=== PATIENT | female | born 1940 | race Caucasian/White ===

== ENCOUNTER 2022-10-08 09:42 | Inpatient (IN) | payer OTHER ==
[~2022-10-08 09:42] MED LIST: ASPI81CH PO; MECL25 PO
[2022-10-08 10:21] LABS: Source, Urine Straight Cath
[2022-10-08 10:25] LABS: BASOPHILS ABSOLUTE AUTO 0.04 K/mm3 (0.00-0.23); BASOPHILS PERCENT AUTO 0 % (0-2); EOSINOPHILS PERCENT AUTO 0 % (0-6); Hemoglobin 13.6 g/dL (11.5-16.0); IMMATURE GRAN ABSOLUTE AUTO 0.07 K/mm3 (0.00-0.10); IMMATURE GRAN PERCENT AUTO 1 % (0-1); LYMPHOCYTES ABSOLUTE AUTO 0.45 K/mm3 (0.84-5.20); LYMPHOCYTES PERCENT AUTO 4 % (21-46); MONOCYTES ABSOLUTE AUTO 0.78 K/mm3 (0.16-1.47); MONOCYTES PERCENT AUTO 7 % (4-13); Mean Corpuscular HGB 31.2 pg (26.0-34.0); Mean Corpuscular Volume 92 fL (80-100); Mean Platelet Volume 8.6 fL (9.1-12.4); NEUTROPHILS PERCENT AUTO 89 % (41-73); Platelet Count 252 K/mm3 (150-400); RDW Coefficient Variation 11.9 % (11.7-14.2); RDW Standard Deviation 40.7 fL (35.1-46.3); Red Blood Cell Count 4.36 M/mm3 (3.80-5.20); White Blood Cell Count 11.84 K/mm3 (4.00-11.30)
[2022-10-08 10:25] LABS: Appearance, Urine Cloudy (Clear); Bilirubin, Urine Neg (Neg); Blood, Urine 4+ (Neg); Color, Urine Yellow (P-Yellow); Glucose Qualitative, Urine Neg (Neg); Ketones, Urine 1+ (Neg); Leukocyte Esterase, Urine 3+ (Neg); Nitrite, Urine Pos (Neg); Protein, Urine 3+ (Neg); Urobilinogen, Urine NORM (Normal)
[2022-10-08 10:43] LABS: Bacteria Mod /hpf; Squamous Epithelial Cells Not Seen /hpf (Few); White Blood Cells, Urine 25-50 /hpf (0-5)
[2022-10-08 10:50] LABS: Albumin, Blood 3.4 g/dL (3.4-5.0); Albumin/Globulin Ratio 0.8 (0.8-1.8); Bilirubin, Total 1.4 mg/dL (0.1-1.0); Bun/Creatinine Ratio 23.8 (12.0-20.0); Calcium, Blood 8.6 mg/dL (8.5-10.1); Creatinine, Blood 0.63 mg/dL (0.40-1.00); Potassium, Blood 3.9 mmol/L (3.5-5.5); Total Protein, Blood 7.4 g/dL (6.4-8.2)
[2022-10-08] MEDS ORDERED: CLOTRIMAZOLE 321 GM (15:36)
[2022-10-08] MEDS ORDERED: NYSTRIT TOP (19:30)
[2022-10-08] MEDS ORDERED: ALEVAZOL56.7 G1 TOP (19:35)
--- NOTE | 2022-10-08 20:15 | NUR ---
SHIFT SUMMARY 1505 RECEIVED PT TO RM 310 VIA GURNEY FROM ER. PT ADMITTED FOR PYELONEPHRITIS. PT TO ER WITH SUDDEN ONSET OF R FLANK PAIN AND FEVER. IVF'S AND ROCEPHIN GIVEN IN ER. PT TO RM WITH IVF'S INFUSING PER EMAR. PT'S DAUGHTER AT BS TO ASSIST WITH ADMISSION. PT IS A&O, PLEASANT AND CO-OP. SOME FORGETFULNESS. BED ALARM ON FOR SAFETY. PT ABLE TO TX SELF TO BED UPON ARRIVAL AND AMBULATE TO BTHRM USING FWW AND 1P ASSIST WITH IV PUMP. PT IS CONTINENT. HX OF KEISHA; RT IN TO DISCUSS CPAP WITH PT. PT'S TEMP WNL'S UPON ADMISSION; SEE CHART. THIS EVENING AFTER DINNER PT BECAME CHILLED AND STARTED SHAKING. TEMP CK'D SHOWING INCREASE TO 102.0. HEAT DECREASED IN RM, BLANKETS REMOVED, AND TYLENOL GIVEN PER EMAR. PT NO LONGER SHAKING WITH CHILLS AT THIS TIME, REPORTING FEELING BETTER. ONCOMING FRUIT PACKER FACE AND FILL TO BLAZE VS. REPORT GIVEN TO ONCOMING RN. BED ALARM ON FOR SAFETY, CALL LT IN REACH.
--- NOTE | 2022-10-08 20:25 | NUR ---
PT REPORTING RECENT YEAST INFECTION TO LOW ABD AND DANNY AREA. SKIN IS DARK RED, BUT DRY AND IN HEALING STAGE. DR ARCHIBALD NOTIFIED FOR HOME MEDICATIONS; NEW ORDERS PLACED, SEE EMAR. REPORT GIVEN TO ONCOMING RN.
[2022-10-09 05:03] LABS: Hematocrit 37.4 % (33.0-51.0); Hemoglobin 12.7 g/dL (11.5-16.0); Mean Corpuscular HGB 31.4 pg (26.0-34.0); Mean Corpuscular Volume 92 fL (80-100); Platelet Count 215 K/mm3 (150-400); RDW Coefficient Variation 11.9 % (11.7-14.2); RDW Standard Deviation 40.7 fL (35.1-46.3); Red Blood Cell Count 4.05 M/mm3 (3.80-5.20); White Blood Cell Count 7.58 K/mm3 (4.00-11.30)
[2022-10-09 05:43] LABS: Bun/Creatinine Ratio 17.3 (12.0-20.0); Calcium, Blood 8.2 mg/dL (8.5-10.1); Creatinine, Blood 0.99 mg/dL (0.40-1.00); Potassium, Blood 3.7 mmol/L (3.5-5.5)
[2022-10-09] MEDS ORDERED: NYAMYC15 G1 TOP (15:36)
--- NOTE | 2022-10-09 17:35 | NUR ---
SHIFT SUMMARY PATIENT DENIES PAIN, NAUSEA, AND SHORTNESS OF BREATH. PATIENT IS A SBA WITH A FWW. PATIENT HAS NS AT 1OOMLS/HR. AT 0800, IV FOUND INFILTRATED, NEW IV PLACED IN RIGHT WRIST. PATIENT HAD LOW GRADE FEVER 100.4, MEDICATED WITH TYLENOL. PATIENT REMAINED AT 98.7 OR LESS FOR THE REST OF SHIFT. PATIENT HAD MANY VISITORS TODAY. PATIENT IS EATING AND DRINKING WELL. PATIENT UP TO CHAIR FOR MEALS. PATIENT IS PLEASANT AND COOPERATIVE WITH CARE.
[2022-10-10 05:22] LABS: BASOPHILS ABSOLUTE AUTO 0.03 K/mm3 (0.00-0.23); BASOPHILS PERCENT AUTO 1 % (0-2); EOSINOPHILS ABSOLUTE AUTO 0.04 K/mm3 (0.00-0.68); EOSINOPHILS PERCENT AUTO 1 % (0-6); Hematocrit 36.2 % (33.0-51.0); Hemoglobin 12.6 g/dL (11.5-16.0); IMMATURE GRAN ABSOLUTE AUTO 0.03 K/mm3 (0.00-0.10); IMMATURE GRAN PERCENT AUTO 1 % (0-1); LYMPHOCYTES ABSOLUTE AUTO 0.54 K/mm3 (0.84-5.20); LYMPHOCYTES PERCENT AUTO 8 % (21-46); MONOCYTES ABSOLUTE AUTO 0.55 K/mm3 (0.16-1.47); MONOCYTES PERCENT AUTO 9 % (4-13); Mean Corpuscular HGB 31.3 pg (26.0-34.0); Mean Corpuscular HGB Conc 34.8 g/dL (31.5-36.5); Mean Corpuscular Volume 90 fL (80-100); Mean Platelet Volume 8.8 fL (9.1-12.4); NEUTROPHILS ABSOLUTE AUTO 5.27 K/mm3 (1.96-9.15); NEUTROPHILS PERCENT AUTO 82 % (41-73); Platelet Count 209 K/mm3 (150-400); RDW Coefficient Variation 11.8 % (11.7-14.2); RDW Standard Deviation 38.9 fL (35.1-46.3); Red Blood Cell Count 4.02 M/mm3 (3.80-5.20); White Blood Cell Count 6.46 K/mm3 (4.00-11.30)
--- NOTE | 2022-10-10 05:53 | NUR ---
SHIFT SUMMARY NOC PT A/OX4. PT STILL ON 4L/NC SPO2 >94%. PT HAS NS INFUSING @ 100MLS. PT HAS NAUSEA AT BEGINNING OF SHIFT AND MEDICATED WITH ZOFRAN WHICH RELIEVED IT. PT WAS CONT OF URINE/BOWELS WITH SBA WITH FWW. PT CALLS APPROPRIATELY WHEN FEELING ELIMINATION URGES. PT WAS PLEASANT AND COOPERATIVE TO CARE. PT IS CURRENTLY IN BED WATCHING TV WITH BED RAILS UP, BED IN LOWEST POSITION, AND CALL LIGHT WITHIN REACH.
[2022-10-10 05:58] LABS: Bun/Creatinine Ratio 12.6 (12.0-20.0); Calcium, Blood 8.2 mg/dL (8.5-10.1); Creatinine, Blood 0.87 mg/dL (0.40-1.00); Potassium, Blood 3.8 mmol/L (3.5-5.5)
[2022-10-10] MEDS ORDERED: Acetaminophen325 M1 PO (11:28)
[2022-10-10] MEDS ORDERED: VISBIOME 112.51 EACH PO (11:29)
[2022-10-10] MEDS ORDERED: CEFD300 PO (11:33)
[2022-10-10] MEDS ORDERED: ONDA4ODT MM (11:34)
== END 2022-10-10 13:13 | disposition home or self-care (01) | DRG 690 ==
LOC: ER 09:42 → ERHOLD 09:43 → MEDS 09:43 → ERHOLD 09:43 → MEDS 14:47
PROVIDERS: Emergency Medicine; Family Medicine; Nurse Practitioner Acute Care; ADMIT Internal Medicine
DX: N10 Acute pyelonephritis (principal); R78.81 Bacteremia; G47.33 Obstructive sleep apnea (adult) (pediatric); R91.1 Solitary pulmonary nodule; B96.20 Unspecified Escherichia coli [E. coli] as the cause of diseases classified elsewhere; Z28.21 Immunization not carried out because of patient refusal
CPT/HCPCS: 36415; 51701; 71045; 74177; 76770; 80048; 80053; 81001; 83605; 85025; 85027; 87040; 87077; 87086; 87186; 93005; 93010; 94760; 94762; 96361; 96365-59; 96372; 96376; 99285-25; A9270; G0378; J0696; J1650; J1885; J2405; J7030; Q9967

== ENCOUNTER → 2023-01-31 | Outpatient (CLI) | payer OTHER ==
[~2023-01-31] MED LIST changes: +ALEVAZOL56.7 G1 TOP; +Acetaminophen325 M1 PO; +CEFD300 PO; +CLOTRIMAZOLE 321 GM; +NYAMYC15 G1 TOP; +NYSTRIT TOP; +ONDA4ODT MM; +VISBIOME 112.51 EACH PO
[2023-01-31 14:08] LABS: Source, Urine Clean Catch
[2023-01-31 14:34] LABS: Appearance, Urine Clear (Clear); Bilirubin, Urine Neg (Neg); Blood, Urine Neg (Neg); Color, Urine Yellow (P-Yellow); Glucose Qualitative, Urine Neg (Neg); Ketones, Urine Neg (Neg); Leukocyte Esterase, Urine 1+ (Neg); Nitrite, Urine Pos (Neg); Protein, Urine Neg (Neg); Urobilinogen, Urine NORM (Normal)
[2023-01-31 14:41] LABS: Bacteria Many /hpf; Squamous Epithelial Cells Few /hpf (Few)
== END | disposition home or self-care (01) ==
LOC: LAB SHORT 14:05 → LAB 14:05
PROVIDERS: Physician Assistant
DX: R35.0 Frequency of micturition (principal)
CPT/HCPCS: 81001; 87077; 87086; 87186

== ENCOUNTER 2023-03-25 11:56 | Emergency (ER) | payer OTHER ==
[~2023-03-25] VITALS: Ht 162.6 cm; Wt 74.8 kg
[2023-03-25 12:00] VITALS: BP 159/72
[2023-03-25 13:19] LABS: BASOPHILS ABSOLUTE AUTO 0.04 K/mm3 (0.00-0.23); BASOPHILS PERCENT AUTO 1 % (0-2); EOSINOPHILS ABSOLUTE AUTO 0.03 K/mm3 (0.00-0.68); EOSINOPHILS PERCENT AUTO 1 % (0-6); Hematocrit 38.5 % (33.0-51.0); Hemoglobin 13.5 g/dL (11.5-16.0); IMMATURE GRAN ABSOLUTE AUTO 0.01 K/mm3 (0.00-0.10); IMMATURE GRAN PERCENT AUTO 0 % (0-1); LYMPHOCYTES ABSOLUTE AUTO 1.15 K/mm3 (0.84-5.20); LYMPHOCYTES PERCENT AUTO 18 % (21-46); MONOCYTES ABSOLUTE AUTO 0.32 K/mm3 (0.16-1.47); MONOCYTES PERCENT AUTO 5 % (4-13); Mean Corpuscular HGB 30.8 pg (26.0-34.0); Mean Corpuscular HGB Conc 35.1 g/dL (31.5-36.5); Mean Corpuscular Volume 88 fL (80-100); Mean Platelet Volume 9.1 fL (9.1-12.4); NEUTROPHILS ABSOLUTE AUTO 4.86 K/mm3 (1.96-9.15); NEUTROPHILS PERCENT AUTO 76 % (41-73); Platelet Count 337 K/mm3 (150-400); RDW Coefficient Variation 11.9 % (11.7-14.2); RDW Standard Deviation 38.5 fL (35.1-46.3); Red Blood Cell Count 4.39 M/mm3 (3.80-5.20); White Blood Cell Count 6.41 K/mm3 (4.00-11.30)
[2023-03-25 13:26] LABS: Albumin, Blood 3.7 g/dL (3.4-5.0); Albumin/Globulin Ratio 1.2 (0.8-1.8); Bilirubin, Total 0.7 mg/dL (0.1-1.0); Bun/Creatinine Ratio 26.3 (12.0-20.0); Calcium, Blood 8.5 mg/dL (8.5-10.1); Creatinine, Blood 0.84 mg/dL (0.40-1.00); Globulin, Blood 3.2 g/dL (2.2-4.0); Potassium, Blood 3.5 mmol/L (3.5-5.5); Total Protein, Blood 6.9 g/dL (6.4-8.2)
[2023-03-25] MEDS ORDERED: METO10 PO (15:08)
[2023-03-25] MEDS ORDERED: ONDA4ODT MM (15:08)
[2023-03-25] MEDS ORDERED: PROM12.5S PR (15:08)
== END 2023-03-25 15:30 | disposition home or self-care (01) ==
LOC: ER 11:56
PROVIDERS: Student in an Organized Health Care Education/Training Program
DX: K52.9 Noninfective gastroenteritis and colitis, unspecified (principal); E86.0 Dehydration; Z79.899 Other long term (current) drug therapy
CPT/HCPCS: 71046; 80053; 83735; 83880; 84484; 85025; 96361; 96374; 96375; 99284-25; J2765; J3475; J7030

== ENCOUNTER 2025-01-19 09:54 | Emergency (ER) | payer OTHER ==
[~2025-01-19] VITALS: Ht 162.6 cm; Wt 60.8 kg
[~2025-01-19 09:54] MED LIST changes: +METO10 PO; +PROM12.5S PR
[2025-01-19 11:18] LABS: BASOPHILS ABSOLUTE AUTO 0.06 K/mm3 (0.00-0.23); BASOPHILS PERCENT AUTO 1 % (0-2); EOSINOPHILS ABSOLUTE AUTO 0.06 K/mm3 (0.00-0.68); EOSINOPHILS PERCENT AUTO 1 % (0-6); Hemoglobin 13.6 g/dL (11.5-16.0); IMMATURE GRAN ABSOLUTE AUTO 0.02 K/mm3 (0.00-0.10); IMMATURE GRAN PERCENT AUTO 0 % (0-1); LYMPHOCYTES ABSOLUTE AUTO 1.43 K/mm3 (0.84-5.20); LYMPHOCYTES PERCENT AUTO 30 % (21-46); MONOCYTES ABSOLUTE AUTO 0.27 K/mm3 (0.16-1.47); MONOCYTES PERCENT AUTO 6 % (4-13); Mean Corpuscular Volume 91 fL (80-100); Mean Platelet Volume 8.4 fL (9.1-12.4); NEUTROPHILS PERCENT AUTO 61 % (41-73); Platelet Count 398 K/mm3 (150-400); RDW Standard Deviation 39.8 fL (35.1-46.3); Red Blood Cell Count 4.39 M/mm3 (3.80-5.20); White Blood Cell Count 4.74 K/mm3 (4.00-11.30)
[2025-01-19 11:38] LABS: Albumin, Blood 3.8 g/dL (3.4-5.0); Albumin/Globulin Ratio 1.1 (0.8-1.8); Bilirubin, Total 0.6 mg/dL (0.1-1.0); Bun/Creatinine Ratio 23.4 (12.0-20.0); Calcium, Blood 8.8 mg/dL (8.5-10.1); Creatinine, Blood 0.73 mg/dL (0.40-1.00); Globulin, Blood 3.6 g/dL (2.2-4.0); Total Protein, Blood 7.4 g/dL (6.4-8.2)
[2025-01-19] MEDS ORDERED: Ibuprofen 600 MG Tab PO ONE (12:15)
[2025-01-19] MEDS ORDERED: Acetaminophen 500 MG Tab PO ONE (12:15)
[2025-01-19] MEDS ORDERED: ACET500 PO (14:07)
[2025-01-19 14:19] VITALS: BP 142/86
== END 2025-01-19 14:20 | disposition home or self-care (01) ==
LOC: ER 09:54
PROVIDERS: Physician Assistant
DX: R07.89 Other chest pain (principal); G47.30 Sleep apnea, unspecified; Z79.899 Other long term (current) drug therapy
CPT/HCPCS: 71046; 80053; 83735; 84484; 85025; 93005; 93010; 99285-25

== ENCOUNTER 2025-02-25 11:13 | Inpatient (IN) | payer OTHER ==
[~2025-02-25] VITALS: Ht 157.5 cm; Wt 61.3 kg
[~2025-02-25 11:13] MED LIST changes: +ACET500 PO
[2025-02-25 12:28] LABS: BASOPHILS ABSOLUTE AUTO 0.04 K/mm3 (0.00-0.23); BASOPHILS PERCENT AUTO 0 % (0-2); EOSINOPHILS PERCENT AUTO 0 % (0-6); Hematocrit 38.1 % (33.0-51.0); IMMATURE GRAN ABSOLUTE AUTO 0.04 K/mm3 (0.00-0.10); IMMATURE GRAN PERCENT AUTO 0 % (0-1); LYMPHOCYTES ABSOLUTE AUTO 0.79 K/mm3 (0.84-5.20); LYMPHOCYTES PERCENT AUTO 7 % (21-46); MONOCYTES ABSOLUTE AUTO 0.76 K/mm3 (0.16-1.47); MONOCYTES PERCENT AUTO 6 % (4-13); Mean Corpuscular HGB 31.3 pg (26.0-34.0); Mean Corpuscular HGB Conc 34.1 g/dL (31.5-36.5); Mean Corpuscular Volume 92 fL (80-100); Mean Platelet Volume 8.7 fL (9.1-12.4); NEUTROPHILS ABSOLUTE AUTO 10.18 K/mm3 (1.96-9.15); NEUTROPHILS PERCENT AUTO 86 % (41-73); Platelet Count 216 K/mm3 (150-400); RDW Coefficient Variation 11.9 % (11.7-14.2); RDW Standard Deviation 40.3 fL (35.1-46.3); Red Blood Cell Count 4.16 M/mm3 (3.80-5.20); White Blood Cell Count 11.81 K/mm3 (4.00-11.30)
[2025-02-25] MEDS ORDERED: Ondansetron HCl 2 MG / ML 2ML Vial IV ONE (13:10)
[2025-02-25 13:12] LABS: Albumin, Blood 3.2 g/dL (3.4-5.0); Albumin/Globulin Ratio 0.8 (0.8-1.8); Bilirubin, Total 0.8 mg/dL (0.1-1.0); Bun/Creatinine Ratio 21.4 (12.0-20.0); Calcium, Blood 8.7 mg/dL (8.5-10.1); Creatinine, Blood 0.79 mg/dL (0.40-1.00); Globulin, Blood 3.8 g/dL (2.2-4.0); Potassium, Blood 3.6 mmol/L (3.5-5.5)
[2025-02-25 14:45] LABS: Source, Urine Straight Cath
[2025-02-25 14:48] LABS: Appearance, Urine Hazy (Clear); Bilirubin, Urine Neg (Neg); Blood, Urine 4+ (Neg); Color, Urine Yellow (P-Yellow); Glucose Qualitative, Urine Neg (Neg); Ketones, Urine 3+ (Neg); Leukocyte Esterase, Urine 2+ (Neg); Nitrite, Urine Neg (Neg); Protein, Urine 2+ (Neg); Urobilinogen, Urine NORM (Normal)
[2025-02-25 14:59] LABS: Bacteria Few /hpf
[2025-02-25 15:01] LABS: Hyaline Casts 0-2 /lpf (0-2)
[2025-02-25 15:02] LABS: Red Blood Cells, Urine 0-2 /hpf (0-2); Squamous Epithelial Cells Few /hpf (Few)
[2025-02-25 15:03] LABS: Granular Casts 0-2 /lpf (0)
[2025-02-25] MEDS ORDERED: CefTRIAXone Sodium 1,000 MG in NS 100 ML IV ONE (16:40)
[2025-02-25] MEDS ORDERED: Metoclopramide HCl 5MG / ML 2ML Vial IV PRN (18:30)
[2025-02-25] MEDS ORDERED: Ondansetron HCl 2 MG / ML 2ML Vial IV PRN (18:30)
[2025-02-25] MEDS ORDERED: Lactated Ringer's 1,000 ML IV SCH (18:30)
[2025-02-25] MEDS ORDERED: Lactated Ringer's 1,000 ML IV ONE (19:16)
[2025-02-25] MEDS ORDERED: Lactobacil 2-S.Thermo-Bifido 1 1 Cap PO SCH (21:00)
[2025-02-25 21:26] VITALS: BP 117/53
[2025-02-26] MEDS ORDERED: LOSA25 PO (00:18)
[2025-02-26] MEDS ORDERED: NATAZIA 28 TAB1 EACH PO (00:22)
[2025-02-26 04:59] LABS: Hematocrit 35.3 % (33.0-51.0); Mean Corpuscular HGB 30.8 pg (26.0-34.0); Mean Corpuscular Volume 91 fL (80-100); Mean Platelet Volume 9.2 fL (9.1-12.4); Platelet Count 216 K/mm3 (150-400); RDW Coefficient Variation 11.9 % (11.7-14.2); RDW Standard Deviation 39.8 fL (35.1-46.3); Red Blood Cell Count 3.89 M/mm3 (3.80-5.20)
[2025-02-26 05:51] LABS: Bun/Creatinine Ratio 24.6 (12.0-20.0); Calcium, Blood 8.4 mg/dL (8.5-10.1); Creatinine, Blood 0.73 mg/dL (0.40-1.00); Potassium, Blood 3.8 mmol/L (3.5-5.5)
--- NOTE | 2025-02-26 05:58 | NUR ---
SHIFT SUMMARY; AFTER ADMIT, PATIENT WAS AWAKE LATE. SHE WAS UP TO THE BR WITH 1 A/FWW. TOLERATED WELL. IV INFUSING LR/100ML/HR. [facility] CALL.
[2025-02-26 07:03] VITALS: BP 135/62
[2025-02-26] MEDS ORDERED: Losartan Potassium 25 MG Tab PO SCH (09:00)
[2025-02-26] MEDS ORDERED: Enoxaparin 40 MG/0.4 ML SYR SC SCH (09:00)
[2025-02-26] MEDS ORDERED: NS 1,000 ML IV SCH (12:30)
--- NOTE | 2025-02-26 12:30 | NUR ---
daughter at bedside, stand by assist to bathroom with fww and gait belt, patient clearly makes needs known, daughter continues to answer for patient. patient alert and orented x3 with forgetfulness
[2025-02-26 16:27] VITALS: BP 150/75
[2025-02-26] MEDS ORDERED: CefTRIAXone Sodium 1,000 MG in NS 100 ML IV SCH (18:00)
--- NOTE | 2025-02-26 18:38 | NUR ---
alert and oriented x3, forgetful and confused at times, daughter helpful with care, ivf infusing, urine clear yellow, possible home tomorrow, call light with in reach, will relay to pm rn
[2025-02-26 19:12] VITALS: BP 119/62
--- NOTE | 2025-02-27 04:32 | NUR ---
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 A&O X3-4. COOPERATIVE WITH CARE AND CALLS APPROPRIATELY. INDEPENDENT WITH BED MOBILITY. SBA 1 PERSON FWW FOR LINE MANAGEMENT. CONTINENT OF BLADDER. IVF COMPLETED. NO NOTED ADVERSE SIDE EFFECTS TO IV ABX. BED IN LOWEST POSITION. CALL LIGHT IN REACH. CARES ONGING ORDERED. NO ACUTE EVENTS. POSS D/C TODAY.
[2025-02-27 04:53] VITALS: BP 123/65
[2025-02-27 07:24] VITALS: BP 141/75
[2025-02-27] MEDS ORDERED: Cephalexin500 MG PO (11:10)
--- NOTE | 2025-02-27 12:24 | NUR ---
PATIENT TO BE DISCHARGED, DAUGHTER TO ACCOMPANY PATIENT, ANTIBIOTIC SENT TO [facility], DAUGHTER PICKING UP NOW
--- NOTE | 2025-02-27 14:38 | NUR ---
DISCAHRGED HOME 1303, INSTRUCTIONS, MEDICATIONS, AND FOLLOW UP NEEDS EDUCATED TO PATIENT AND DAUGHTER. BOTH STATED UNDERSTANDING, BOTH DENIED FURTHER QUESTIONS
== END 2025-02-27 13:10 | disposition home health service (06) | DRG 690 ==
LOC: ER 11:13 → MEDS 11:14
PROVIDERS: Nurse Practitioner Acute Care; Physician Assistant; ADMIT Internal Medicine
DX: N39.0 Urinary tract infection, site not specified (principal); E87.1 Hypo-osmolality and hyponatremia; G47.33 Obstructive sleep apnea (adult) (pediatric); I10 Essential (primary) hypertension; R53.1 Weakness; Z86.73 Personal history of transient ischemic attack (TIA), and cerebral infarction without residual deficits; Z79.899 Other long term (current) drug therapy; Z87.19 Personal history of other diseases of the digestive system; W19.XXXA Unspecified fall, initial encounter; Y92.009 Unspecified place in unspecified non-institutional (private) residence as the place of occurrence of the external cause
CPT/HCPCS: 36415; 80048; 80053; 81001; 85025; 85027; 87077; 87086; 87186; 93005; 93010; 97110; 97116; 97161; 97530; 99285-25; A9270; G0378; J0696; J1650; J2405; J7030; J7120